=== PATIENT | female | born 1965 | race Caucasian/White ===

== ENCOUNTER → 2024-02-23 07:58 | Outpatient (REF) | payer OTHER, SELFPAY | LOC: WOUND 07:58 | PROVIDERS: ATTENDING PHYSICIAN Surgery; FAMILY PHYSICIAN Family Medicine | DX: L97.222 Non-pressure chronic ulcer of left calf with fat layer exposed (principal); I87.2 Venous insufficiency (chronic) (peripheral) | CPT/HCPCS: 11042; 99204 ==

== ENCOUNTER → 2024-03-01 08:42 | Outpatient (REF) | payer OTHER, SELFPAY | LOC: WOUND 08:42 | PROVIDERS: ATTENDING PHYSICIAN Surgery | DX: L97.222 Non-pressure chronic ulcer of left calf with fat layer exposed (principal); I87.2 Venous insufficiency (chronic) (peripheral) | CPT/HCPCS: 11042 ==

== ENCOUNTER → 2024-03-15 08:31 | Outpatient (REF) | payer OTHER, SELFPAY | LOC: RAD 08:31 | PROVIDERS: ATTENDING PHYSICIAN Family Medicine | DX: Z13.6 Encounter for screening for cardiovascular disorders (principal) | CPT/HCPCS: 75571 ==

== ENCOUNTER → 2024-03-15 08:36 | Outpatient (REF) | payer OTHER, SELFPAY | LOC: WOUND 08:36 | PROVIDERS: ATTENDING PHYSICIAN Surgery | DX: L97.222 Non-pressure chronic ulcer of left calf with fat layer exposed (principal); I87.2 Venous insufficiency (chronic) (peripheral) | CPT/HCPCS: 11042 ==

== ENCOUNTER → 2024-03-29 13:08 | Outpatient (REF) | payer OTHER, SELFPAY | LOC: WOUND 13:08 | PROVIDERS: ATTENDING PHYSICIAN Surgery; FAMILY PHYSICIAN Family Medicine | DX: L97.222 Non-pressure chronic ulcer of left calf with fat layer exposed (principal); I87.2 Venous insufficiency (chronic) (peripheral) | CPT/HCPCS: 99213 ==

== ENCOUNTER → 2024-04-11 09:47 | Outpatient (REF) | payer OTHER, SELFPAY | LOC: WOUND 09:47 | PROVIDERS: ATTENDING PHYSICIAN Surgery; FAMILY PHYSICIAN Family Medicine | DX: L97.222 Non-pressure chronic ulcer of left calf with fat layer exposed (principal); I87.2 Venous insufficiency (chronic) (peripheral) | CPT/HCPCS: 11042 ==

== ENCOUNTER → 2024-04-25 13:15 | Outpatient (REF) | payer OTHER, SELFPAY | LOC: WOUND 13:15 | PROVIDERS: ATTENDING PHYSICIAN Surgery | DX: L97.222 Non-pressure chronic ulcer of left calf with fat layer exposed (principal); I87.2 Venous insufficiency (chronic) (peripheral) | CPT/HCPCS: 99213 ==

== ENCOUNTER → 2024-05-10 08:33 | Outpatient (REF) | payer OTHER, SELFPAY | LOC: WOUND 08:33 | PROVIDERS: ATTENDING PHYSICIAN Surgery | DX: L97.222 Non-pressure chronic ulcer of left calf with fat layer exposed (principal); I87.2 Venous insufficiency (chronic) (peripheral) | CPT/HCPCS: 99212 ==

== ENCOUNTER → 2024-05-10 09:07 | Outpatient (REF) | payer OTHER, SELFPAY | LOC: RAD 09:07 | PROVIDERS: ATTENDING PHYSICIAN Family Medicine | DX: R22.40 Localized swelling, mass and lump, unspecified lower limb (principal); M25.562 Pain in left knee | CPT/HCPCS: 73565; 73590; 73630 ==

== ENCOUNTER → 2024-06-09 08:09 | Outpatient (REF) | payer OTHER, SELFPAY | LOC: RAD 08:09 | PROVIDERS: ATTENDING PHYSICIAN Surgery; FAMILY PHYSICIAN Family Medicine | DX: L97.222 Non-pressure chronic ulcer of left calf with fat layer exposed (principal); I87.2 Venous insufficiency (chronic) (peripheral) | CPT/HCPCS: 93971 ==